=== PATIENT | female | born 1955 | race Caucasian/White ===

== ENCOUNTER 2020-07-13 06:21 | Day surgery (SDC) | payer MEDICARE, OTHER ==
[~2020-07-13] VITALS: Ht 157.5 cm; Wt 76.2 kg
[~2020-07-13 06:21] MED LIST: NAPR220
--- NOTE | 2020-07-13 08:08 | NUR ---
07/13/20 0808 [place],Jeaneth RECEIVED FROM OR WITH AUDIBLE AND AUSC. WHEEZES BILAT. OXYGEN VIA NON-REBREATHER ADDED WITHOUT IMPROVEMENT. NEBULIZER GIVEN PER DR. TUBBS WITH IMPROVEMENT IN WHEEZES AND O2 SAT UP TO 92%
== END 2020-07-13 12:10 | disposition home or self-care (01) ==
LOC: ORSCSDS 06:21
PROVIDERS: Orthopaedic Surgery
PROC: 01N50ZZ Release Median Nerve, Open Approach (ICD-10-PCS; principal; 2020-07-13 07:30)
DX: G56.01 Carpal tunnel syndrome, right upper limb (principal); Z87.891 Personal history of nicotine dependence
CPT/HCPCS: 71045; J2250; J2310; J2704; J3010; J7120; U0002

== ENCOUNTER → 2022-06-26 | Outpatient (CLI) | payer MEDICARE ==
[2022-06-28 15:10] LABS: HPV 16 Negative (Negative); HPV 18 Negative (Negative); HPV OTHER HR TYPES Negative (Negative)
== END | disposition home or self-care (01) ==
LOC: LAB SHORT 08:00 → LAB 08:00
PROVIDERS: Student in an Organized Health Care Education/Training Program
DX: Z12.4 Encounter for screening for malignant neoplasm of cervix (principal)
CPT/HCPCS: 87624; G0145